=== PATIENT | female | born 1980 | race Caucasian/White ===

== ENCOUNTER 2021-07-15 21:01 | Emergency (ER) | payer OTHER ==
[2021-07-16] MEDS ORDERED: HYDROCODON-ACE1 EAC4 PO (02:11)
[2021-07-16] MEDS ORDERED: IBUPROFEN600 MG PO (02:18)
== END 2021-07-16 02:29 | disposition home or self-care (01) ==
LOC: ER1 21:01
DX: S52.572A Other intraarticular fracture of lower end of left radius, initial encounter for closed fracture (principal); W17.89XA Other fall from one level to another, initial encounter; Y93.51 Activity, roller skating (inline) and skateboarding
CPT/HCPCS: 25605; 73090; 73110; 94760; 96374; 96375; 96376; 99283; J1170; J2270; J2405; J2704

== ENCOUNTER 2021-07-16 22:17 | Emergency (ER) | payer OTHER ==
[~2021-07-16 22:17] MED LIST: HYDROCODON-ACE1 EAC4 PO; IBUPROFEN600 MG PO
== END 2021-07-17 04:00 | disposition home or self-care (01) ==
LOC: ER1 22:17
DX: M79.631 Pain in right forearm (principal); F17.210 Nicotine dependence, cigarettes, uncomplicated; Z46.89 Encounter for fitting and adjustment of other specified devices
CPT/HCPCS: 99282; J1885

== ENCOUNTER → 2021-07-21 | Day surgery (SDC) | payer OTHER ==
[~2021-07-21] VITALS: Ht 157.5 cm; Wt 45.4 kg
[~2021-07-21] MED LIST changes: +HYDROCODON-ACE1 EAC6 PO
[2021-07-21 09:51] LABS: BUN/CREATININE RATIO 19 (0-10)
== END | disposition home or self-care (01) ==
LOC: OR 08:30
PROVIDERS: Orthopaedic Surgery
DX: S52.551A Other extraarticular fracture of lower end of right radius, initial encounter for closed fracture (principal); W19.XXXA Unspecified fall, initial encounter; Y93.21 Activity, ice skating; Z20.822 Contact with and (suspected) exposure to COVID-19
CPT/HCPCS: 36415; 73110; 76000; 80048; 84703; C1713; J0690; J1100; J2250; J2370; J2405; J2704; J2795; J3010; J7120